=== PATIENT | female | born 1975 | race African-American/Black ===

== ENCOUNTER 2019-06-02 10:00 | Emergency (ER) | payer SELFPAY ==
--- NOTE | 2019-06-02 10:25 | ER Document Report ---
ED Medical Screen (RME) - General Chief Complaint: Urinary Problem Stated Complaint: URINARY ISSUE Time Seen by Provider: 06/02/19 10:19 TRAVEL OUTSIDE OF THE [place] IN LAST 30 DAYS: No - HPI Notes: 06/02/19 10:23 Patient is a 44-year-old female who presents complaining of upper/mid abdominal pain since . She was seen in urgent care Monday and diagnosed with UTI and was placed on Keflex. Patient states that she does continue to abdominal pain so she presented here for evaluation. Pain does not radiate, but she does feel some pain in her lower abdomen as well at times. She is able to eat and drink without difficulty. She is having normal bowel movements. No other vaginal bleeding, odor, or discharge. Denies drug allergies. No fever. I have treated and performed a rapid initial assessment of this patient. A comprehensive ED assessment and evaluation of the patient, analysis of test results and completion of medical decision making process will be conducted by additional ED providers. PHYSICAL EXAMINATION: GENERAL: Well-appearing, well-nourished and in no acute distress. A&Ox4. Answers questions appropriately. Abdomen: Limited exam in triage, abdomen overall is soft with tenderness to the mid and upper abdomen and somewhat to the lower abdomen. Will need to lay supine to further evaluate to decipher if any imaging is needed. - Related Data Allergies/Adverse Reactions: No Known Allergies Allergy (Verified 06/02/19 10:17) Past Medical History - Social History Chew tobacco use (# tins/day): No Frequency of alcohol use: None Drug Abuse: None Physical Exam - Vital signs Vitals: Temp Pulse Resp BP Pulse Ox 98.2 F 112 H 16 151/90 H 99 06/02/19 10:05 06/02/19 10:05 06/02/19 10:05 06/02/19 10:05 06/02/19 10:05 Course - Vital Signs Vital signs: Temp Pulse Resp BP Pulse Ox 98.2 F 112 H 16 151/90 H 99 06/02/19 10:05 06/02/19 10:05 06/02/19 10:05 06/02/19 10:05 06/02/19 10:05
[2019-06-02 10:58] LABS: ABSOLUTE BASOPHILS # (AUTO) 0.1 10^3/uL (0.0-0.2); ABSOLUTE EOSINOPHILS # (AUTO) 0.2 10^3/uL (0.0-0.6); ABSOLUTE LYMPHOCYTES (AUTO) 1.5 10^3/uL (0.5-4.7); ABSOLUTE MONOCYTES (AUTO) 1.1 10^3/uL (0.1-1.4); BASOPHILS % (AUTO) 0.6 % (0-2); EOSINOPHILS % (AUTO) 1.3 % (0-6); HEMATOCRIT 39.7 % (36.0-47.0); HEMOGLOBIN 13.1 g/dL (12.0-15.5); LYMPHOCYTES % (AUTO) 9.4 % (13-45); MEAN CORPUSCULAR HEMOGLOBIN 26.2 pg (27.0-33.4); MEAN CORPUSCULAR HGB CONC 32.9 g/dL (32.0-36.0); MEAN CORPUSCULAR VOLUME 80 fl (80-97); MONOCYTES % (AUTO) 6.9 % (3-13); PLATELET COUNT 458 10^3/uL (150-450); RED BLOOD COUNT 4.99 10^6/uL (3.72-5.28); RED CELL DISTRIBUTION WIDTH 15.7 % (11.5-14.0); SEGMENTED NEUTROPHILS % (AUTO) 81.8 % (42-78); TOTAL CELLS COUNTED % (AUTO) 100 %; WHITE BLOOD COUNT 15.9 10^3/uL (4.0-10.5)
[2019-06-02 11:04] LABS: APPEARANCE,URINE CLOUDY; BILIRUBIN,URINE NEGATIVE (NEGATIVE); COLOR,URINE AMBER; GLUCOSE, URINE NEGATIVE (NEGATIVE); KETONES,URINE NEGATIVE (NEGATIVE); PROTEIN,URINE 100 mg/dL (NEGATIVE); URINE SPECIFIC GRAVITY 1.025
[2019-06-02 11:18] LABS: ALBUMIN 4.1 g/dL (3.5-5.0); ALKALINE PHOSPHATASE 106 U/L (38-126); ANION GAP 13 (5-19); ASPARTATE AMINO TRANSFERASE 16 U/L (14-36); BILIRUBIN,TOTAL 0.7 mg/dL (0.2-1.3); BLOOD UREA NITROGEN 10 mg/dL (7-20); CALCIUM 9.6 mg/dL (8.4-10.2); CARBON DIOXIDE 24 mmol/L (22-30); CHLORIDE 103 mmol/L (98-107); GLUCOSE 130 mg/dL (75-110); POTASSIUM 3.7 mmol/L (3.6-5.0); TOTAL PROTEIN 7.9 g/dL (6.3-8.2)
[2019-06-02] MEDS ORDERED: CEFTRIAXONE 1 GM/D5W RTU 1 GM/50 ML RTUPB IV ONE (11:46)
[2019-06-02] MEDS: NORMAL SALINE 1000 ML 1,000 ML IV PRN ×2 (12:06→13:05)
--- NOTE | 2019-06-02 12:06 | ER Document Report ---
ED General - General Chief Complaint: Abdominal Pain Stated Complaint: URINARY ISSUE Time Seen by Provider: 06/02/19 10:19 Primary Care Provider: NOVA SORENSEN MD [Primary Care Provider] - Follow up as needed TRAVEL OUTSIDE OF THE [place] IN LAST 30 DAYS: No - HPI Notes: Patient is a 44-year-old female who presents to the emergency department for evaluation. She states that last week she was sick with a cough, congestion. She states that throughout the week she developed some left lower back pain, that eventually radiated around to her suprapubic region. She states that her respiratory symptoms improved, but her pain worsened, so she was seen at an urgent care. She was told she had a urinary tract infection, started on Keflex. She states that she is been taking that appropriately for the last 48 hours, but none of her symptoms are improving. She describes a pressure type sensation in her lower abdomen, with occasional radiation up into the epigastric region. She has had no fevers or chills. No nausea or vomiting. Her pain is made worse by urinating, nothing seems to make it better. She denies any vaginal discharge, no lesions to the genital region. - Related Data Allergies/Adverse Reactions: No Known Allergies Allergy (Verified 06/02/19 10:17) Home Medications: None, with the exception of current Keflex prescription Past Medical History - General Information source: Patient - Social History Smoking Status: Never Smoker Chew tobacco use (# tins/day): No Frequency of alcohol use: None Drug Abuse: None Family History: None, Reviewed & Not Pertinent Patient has suicidal ideation: No Patient has homicidal ideation: No - Medical History Medical History: Other - History of ectopic Review of Systems - Review of Systems Constitutional: No symptoms reported EENT: No symptoms reported Cardiovascular: No symptoms reported Respiratory: No symptoms reported Gastrointestinal: See HPI Genitourinary: See HPI Female Genitourinary: No symptoms reported Musculoskeletal: No symptoms reported Skin: No symptoms reported Neurological/Psychological: No symptoms reported Physical Exam - Vital signs Vitals: Temp Pulse Resp BP Pulse Ox 98.2 F 112 H 16 151/90 H 99 06/02/19 10:05 06/02/19 10:05 06/02/19 10:05 06/02/19 10:05 06/02/19 10:05 - Notes Notes: This is a very pleasant obese female, who appears her stated age in no acute distress. She is lying comfortably in the bed. Vital signs reviewed, please refer to chart. Head is normocephalic, atraumatic. Pupils equal round, reactive to light. Neck is supple without meningismus. Heart is regular rate and rhythm. Lungs are clear to auscultation bilaterally. Abdomen is soft, moderately tender in the suprapubic region without rebound or guarding, normoactive bowel sounds throughout. No costovertebral angle tenderness. Extremities without cyanosis, clubbing. Posterior calves are nontender. Pe ripheral pulses are equal. Skin is warm and dry. Patient is awake, alert, neurological exam is nonfocal. Course - Re-evaluation Re-evalutation: 06/02/19 12:03 Patient presents to the emergency department for evaluation. Laboratory investigations were ordered as through triage. It does seem that the patient continues to have a nitrite positive significant urinary tract infection, with comps of white blood cells seen on microscopic urine evaluation. She has a 15,000 white count. She is mildly tachycardic on arrival, but my suspicion is that this is in part secondary to her body habitus, considering her BMI of 44. At rest her heart rate was in the range of 85-90. She has had no fevers at home. No nausea or vomiting. She is given a dose of IV ceftriaxone, blood cultures were obtained. Urine was sent for culture. Because I do not have a culture to follow, I am inclined to treat the patient with a stronger antibi otic. Patient will be given a 5-day prescription of Cipro. She is to follow-up closely with primary care, return to the ED with worsening or new concerning symptoms of any sort. - Vital Signs Vital signs: Temp Pulse Resp BP Pulse Ox 98.2 F 112 H 16 151/90 H 99 06/02/19 10:05 06/02/19 10:05 06/02/19 10:05 06/02/19 10:05 06/02/19 10:05 - Laboratory Result Diagrams: 06/02/19 10:48 06/02/19 10:48 Laboratory results interpreted by me: 06/02/19 06/02/19 06/02/19 10:32 10:48 10:48 WBC 15.9 H MCH 26.2 L RDW 15.7 H Plt Count 458 H Lymph % (Auto) 9.4 L Absolute Neuts (auto) 13.0 H Seg Neutrophils % 81.8 H Glucose 130 H Urine Protein 100 H Urine Nitrite (Reflex) POSITIVE H Urine Urobilinogen 4.0 H Discharge - Discharge Clinical Impression: Urinary tract infection Condition: Stable Disposition: HOME, SELF-CARE Instructions: Urinary Tract Infection ([facility]), Ciprofloxacin ([facility]) Additional Instructions: Rest, stay well-hydrated. Please take all of the Cipro as directed, taking your first dose today. Your antibiotic is being chosen empirically, as we do not have a culture at this time for comparison. If you develop fevers, vomiting, increased pain, or any other new or concerning symptoms, please return immediately to the emergency department for reevaluation. Otherwise, follow-up with primary care next week. Referrals: NOVA SORENSEN MD [Primary Care Provider] - Follow up as needed
[2019-06-02 13:32] VITALS: BP 140/68
== END 2019-06-02 13:58 | disposition home or self-care (01) ==
LOC: ER 10:00
DX: N39.0 Urinary tract infection, site not specified (principal); R05 Cough; R68.89 Other general symptoms and signs; R00.0 Tachycardia, unspecified; Z68.41 Body mass index [BMI] 40.0-44.9, adult
CPT/HCPCS: 99283; 96361; 96365; 36415; 87040; 83690; 85025; 81025; 80053; 81001; J7030; J0696

== ENCOUNTER 2020-06-12 09:58 | Emergency (ER) | payer SELFPAY ==
[2020-06-12] MEDS ORDERED: TETRACAINE HCL 0.5% OPH SOLN 4 ML OD ONE ×2 (10:34→14:30)
--- NOTE | 2020-06-12 10:36 | ER Document Report ---
ED Medical Screen (RME) - General Chief Complaint: Eye Pain Stated Complaint: RIGHT EYE PAIN,DRAINAGE Time Seen by Provider: 06/12/20 10:31 Primary Care Provider: NOVA SORENSEN MD [Primary Care Provider] - Follow up as needed Mode of Arrival: Ambulatory Information source: Patient Notes: HPI; 45-year-old female presents to the emergency room complaining of right eye irritation that started yesterday. Patient states her right eye started burning yesterday she took out her contact woke up this morning with erythema, swelling. Tearing. States cannot fully open up her eyes secondary to pain. No meds for symptoms. No known trauma or injury. PE: Alert and oriented x3. Lungs: Clear to auscultation without rales, rhonchi, wheezes. Heart: Regular rate rhythm without murmurs, rubs, gallops. Right eye that is swollen. Unable to fully evaluate in triage as patient has difficulty opening her right eye. TAVIA SÁNCHEZ I have greeted and performed a rapid initial assessment of this patient. A comprehensive ED assessment and evaluation of the patient, analysis of test results and completion of the medical decision making process will be conducted by additional ED providers. I have specifically instructed the patient or family members with the patient to immediately return to any nursing staff should anything change in the patient's condition or with their chief complaint. TRAVEL OUTSIDE OF THE [place] IN LAST 30 DAYS: No - Related Data Allergies/Adverse Reactions: No Known Allergies Allergy (Verified 06/02/19 10:17) Physical Exam - Vital signs Vitals: Temp Pulse Resp BP Pulse Ox 98.9 F 76 20 156/119 H 96 06/12/20 10:15 06/12/20 10:15 06/12/20 10:15 06/12/20 10:15 06/12/20 10:15 Course - Vital Signs Vital signs: Temp Pulse Resp BP Pulse Ox 98.9 F 76 20 156/119 H 96 06/12/20 10:15 06/12/20 10:15 06/12/20 10:15 06/12/20 10:15 06/12/20 10:15 Doctor's Discharge - Discharge Referrals: NOVA SORENSEN MD [Primary Care Provider] - Follow up as needed
[2020-06-12] MEDS ORDERED: TETRACAINE HCL 0.5% OPH SOLN 4 ML ONE (13:26)
--- NOTE | 2020-06-12 16:06 | ER Document Report ---
ED General - General Chief Complaint: Eye Problem Stated Complaint: RIGHT EYE PAIN,DRAINAGE Time Seen by Provider: 06/12/20 10:31 Primary Care Provider: NOVA SORENSEN MD [Primary Care Provider] - Follow up as needed Mode of Arrival: Ambulatory TRAVEL OUTSIDE OF THE [place] IN LAST 30 DAYS: No - HPI Notes: Chief complaint: Right eye pain History of present illness: 45-year-old female who uses soft contact lenses reports irritation of right eye for the past 2 to 3 days. Small amount of clear drainage. Photophobic. She stopped using contacts yesterday but I still feels irritated. She reports corrected vision is normal wearing glasses. She denies fever. She is not on any regular medications and has no known allergies. - Related Data Allergies/Adverse Reactions: No Known Allergies Allergy (Verified 06/12/20 10:35) Past Medical History - General Information source: Patient - Social History Smoking Status: Never Smoker Chew tobacco use (# tins/day): No Drug Abuse: None Family History: None, Reviewed & Not Pertinent Review of Systems - Review of Systems Notes: Constitutional: Negative for fever. HENT: Negative for sore throat. Eyes: As per HPI. Cardiovascular: Negative for chest pain. Respiratory: Negative for shortness of breath. Gastrointestinal: Negative for abdominal pain, vomiting or diarrhea. Genitourinary: Negative for dysuria. Musculoskeletal: Negative for back pain. Skin: Negative for rash. Neurological: Negative for headaches, weakness or numbness. 10 point ROS negative except as marked above and in HPI. Physical Exam - Vital signs Vitals: Temp Pulse Resp BP Pulse Ox 98.9 F 76 20 156/119 H 96 06/12/20 10:15 06/12/20 10:15 06/12/20 10:15 06/12/20 10:15 06/12/20 10:15 - Notes Notes: GENERAL: Somewhat obese middle-aged female approximately stated age appearing in no acute distress. SKIN: Good turgor no rashes. HEAD: Normocephalic atraumatic. EYES: PERRLA. EOMI. Conjunctivae and sclerae clear. NECK: Supple. No masses or thyromegaly. No adenopathy. Carotids 2+ without bruits. No JVD. BACK: Symmetrical without tenderness. CHEST: Respirations unlabored. Breath sounds clear and symmetrical. HEART: Regular rhythm. No murmur gallop or rub. ABDOMEN: Soft nontender without masses, organomegaly or rebound. Bowel sounds normally active. No bruits. EXTREMITIES: No edema. No calf tenderness. Cap refill less than 1.5 seconds. Dorsalis pedis and posterior tibial pulses 3+ and symmetrical. NEUROLOGICAL: Alert and oriented x3. Nonfocal. PSYCHIATRIC: Appropriate affect. - HEENT Visual acuity- Right eye: 20/200 Visual acuity- Left eye: 20/70 Visual acuity- Both eyes: 20/70 Corrective lenses worn: Yes - pt has one corrective lens in (L) Course - Re-evaluation Re-evalutation: 06/12/20 16:06 Patient will be started on antibiotic drops for superficial corneal abrasion related to contact lens use right eye. We discussed red flag symptoms for early return. She will follow up with ophthalmology within the next 24 hours. Findings, clinical impression and plan of treatment have been discussed with patient/family. Understanding of current findings and recommendations has been acknowledged by them and there is agreement regarding disposition and follow-up. - Vital Signs Vital signs: Temp Pulse Resp BP Pulse Ox 98.9 F 76 20 156/119 H 96 06/12/20 10:15 06/12/20 10:15 06/12/20 10:15 06/12/20 10:15 06/12/20 10:15 - Laboratory Results Critical Laboratory Results Reviewed: No Critical Results - Radiology Results Critical Radiology Results Reviewed: No Critical Results Procedures - Eye Procedure Right Time completed: 16:00 Alcaine Drops Administered: Yes Fluorescein applied: Right Slit lamp used: Yes Notes: 06/12/20 16:05 Superficial corneal abrasion 8 o'clock position right eye. No dendrites. Discharge - Discharge Clinical Impression: Corneal abrasion due to contact lens Qualifiers: Laterality: right Qualified Code(s): H18.821 - Corneal disorder due to contact lens, right eye Condition: Stable Disposition: HOME, SELF-CARE Additional Instructions: Corneal Abrasion You have a corneal abrasion, a scratch on the surface of the eye. The pain of a corneal abrasion feels like a sharp particle in the eye. Usually, antibiotics are placed in the eye to prevent infection. Occasionally, medication will be placed in the eye to dilate the pupil. This is done to relieve some of your discomfort and is only temporary. Pain medication may be required. Don't drive or operate machinery until you have the use of both your eyes. The abrasion usually is healed in one or two days. A follow-up examination to confirm healing is recommended. Call the doctor or return at once if you develop severe pain, decreasing vision, eye swelling, or purulent drainage. Return here as needed for new or worsening symptoms: Pain that is worsening or unimproved Uncontrolled vomiting High fever or shaking chills Overall worsening Use prescribed medication. You may take Tylenol or ibuprofen as necessary for pain. Wear dark glasses if you go outside. Do not use contact lenses again until you have been reevaluated by your coroner. You should schedule a visit with them within the next 1 to 2 days. Prescriptions: Cyclopentolate HCl [Cyclogyl 1% Oph Soln 2 ml] 1 drop OP QID 3 Days #1 bottle Polymyxin B Sulf/Trimethoprim [Polytrim Eye Drops] 10 ml OD QID 5 Days #10 drops Forms: Elevated Blood Pressure Referrals: NOVA SORENSEN MD [Primary Care Provider] - Follow up as needed
[2020-06-12] MEDS ORDERED: CLONIDINE HCL 0.1 MG TABLET PO ONE (16:13)
[2020-06-12 16:48] VITALS: BP 154/94
== END 2020-06-12 16:47 | disposition home or self-care (01) ==
LOC: ER 09:58
DX: H18.821 Corneal disorder due to contact lens, right eye (principal); E66.9 Obesity, unspecified
CPT/HCPCS: 99283; J3490